=== PATIENT | male | born 1960 | race Caucasian/White ===

== ENCOUNTER 2019-01-27 09:19 | Outpatient (CLI) | payer BC ==
--- NOTE | 2019-01-27 10:54 | RAD ---
FOUR VIEWS OF THE LUMBOSACRAL SPINE: Comparison: 12-13-15 History: Left leg and back pain for a long time. FINDINGS: AP, lateral, flexion and extension views of the lumbosacral spine were performed. There is subtle gra de I anterolisthesis of L4 on L5, unchanged. The vertebral bodies demonstrate normal height without f racture. Moderate osteophytes are seen throughout the lumbar spine. Alignment is unchanged with flexi on and extension. IMPRESSION: Moderate degenerative changes of the lumbar spine with unchanged alignment with bending. POS: RICHY
--- NOTE | 2019-01-27 11:35 | MRI ---
MRI LUMBAR SPINE: Date: 01/27/19 HISTORY: Lumbar radiculopathy, M54.16, M54.5. TECHNIQUE: Multiplanar, multisequence noncontrast enhanced MRI of lumbar spine obtained. FINDINGS: T12-L1: Unremarkable. L1-2: There is mild broad based disc bulge minimally but not significantly compressing the thecal sa c. The neural foramen are patent. This mild central protrusion has developed since the previous teja rison MRI from 2003. L2-3: Disc desiccation is seen. There is a broad based central disc protrusion minimally but not sig nificantly compressing the thecal sac. There is mild left L2-3 lateral recess stenosis seen. There is moderate to severe bilateral neural foraminal narrowing seen. This appears to have developed since t he previous comparison exam, compressing right and left L2 nerve roots. L3-4: Some mild disc desiccation seen. Bilateral facet hypertrophy is seen. There is mild left L3-4 lateral recess stenosis. There is moderate left L3-4 and mild right L3-4 neural foraminal narrowing s een. L4-5: Disc desiccation is seen. There are facet degenerative changes which have increased when teja red to the 2003 exam. There is now severe bilateral facet hypertrophy, worse on the left than on the right. This results in moderate central and severe left lateral recess spinal stenosis. Mild to moder ate right-sided neural foraminal narrowing is seen. The facet appears to have an oblique-type fractur e through the left anterior facet joint extending toward the exiting left L4 nerve root. L5-S1: A moderate amount of fluid seen in the left L5-S1 facet joint. There is some facet degenerati ve change, some of this, however, appears to be chronic. IMPRESSION: Multilevel facet degenerative changes, most extensive level appears to involve the L4-5 facets, with severe neural foraminal narrowing, especially in the left neural foramen. POS: RICHY
== END 2019-01-27 09:20 | disposition home or self-care (01) ==
LOC: TBSIIMAG 09:19
PROVIDERS: ATTEND Surgery
DX: M47.26 Other spondylosis with radiculopathy, lumbar region (principal); M54.5 Low back pain; G89.29 Other chronic pain; M48.061 Spinal stenosis, lumbar region without neurogenic claudication
CPT/HCPCS: 72100; 72110; 72148

== ENCOUNTER 2019-05-26 08:26 | Day surgery (SDC) | payer BC ==
[2019-05-19 15:19] VITALS: BMI 30.4
[2019-05-26] MEDS ORDERED: Fentanyl 100 MCG/2 ML VIAL ONE ×3 (09:41→14:32)
[2019-05-26] MEDS ORDERED: Rocuronium Bromide 50 MG/5 ML VIAL ONE (09:41)
[2019-05-26] MEDS ORDERED: Lidocaine 1% PF 5 ML VIAL ONE ×2 (09:41→12:30)
[2019-05-26] MEDS ORDERED: PROPOFOL 20 ML ONE (09:41)
[2019-05-26] MEDS ORDERED: Thrombin 5000 UNITS/5 ML VIAL ONE (10:36)
[2019-05-26] MEDS ORDERED: Sodium Chloride 0.9% 10 ML ONE (10:36)
[2019-05-26] MEDS ORDERED: Bacitracin Zinc Ointment 30 gm TUBE ONE (10:36)
[2019-05-26] MEDS ORDERED: Midazolam HCl 2 mg/2 ml Vial ONE (10:46)
[2019-05-26] MEDS ORDERED: PROPOFOL 200 MG/20 ML VIAL ONE (12:30)
[2019-05-26] MEDS ORDERED: Glycopyrrolate 0.2 MG/ML 5 ML SYRINGE ONE (12:30)
[2019-05-26] MEDS ORDERED: Vecuronium 10 MG VIAL ONE (12:30)
[2019-05-26] MEDS ORDERED: ePHEDrine 50 MG/ML VIAL ONE (12:30)
[2019-05-26] MEDS ORDERED: Ketorolac Tromethamine 30 MG/ML VIAL ONE (12:30)
[2019-05-26] MEDS ORDERED: Dexamethasone 20 MG/5 ML VIAL ONE (12:30)
[2019-05-26] MEDS ORDERED: Rocuronium Bromide 10 MG/ML (10ML VIAL) ONE (12:30)
[2019-05-26] MEDS ORDERED: Acetaminophen/Codeine 30-300mg Tablet PO PRN (13:44)
[2019-05-26] MEDS ORDERED: Mag-Al 1200 mg/1200 mg/30 ML UDCUP PO PRN (13:44)
[2019-05-26] MEDS ORDERED: Acetaminophen 325 MG TAB PO PRN (13:44)
[2019-05-26] MEDS ORDERED: Morphine 2 MG/ML SYRINGE SLOW IVP PRN (13:44)
[2019-05-26] MEDS ORDERED: Milk Of Magnesia 30 ML UDCUP PO PRN (13:44)
[2019-05-26] MEDS ORDERED: Fleet Enema 133 ML BOT PR PRN (13:44)
[2019-05-26] MEDS ORDERED: Bisacodyl 10 MG SUPP PR PRN (13:44)
[2019-05-26] MEDS ORDERED: traMADol HCl 50 MG TAB PO PRN (13:44)
[2019-05-26] MEDS ORDERED: Promethazine HCl 25 MG/ML VIAL IM/IV PRN (13:44)
[2019-05-26] MEDS ORDERED: tiZANidine HCl 4 MG TAB PO PRN (13:44)
[2019-05-26] MEDS ORDERED: diphenhydrAMINE 25 MG CAP PO PRN (13:47)
--- NOTE | 2019-05-26 13:55 | OP ---
DATE OF PROCEDURE: 05/26/2019 LOCATION: OR 11. 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 PREPROCEDURE DIAGNOSES: Low back and left leg pain with left L4-L5 and left L5-S1 stenosis with lateral and far-lateral disk extrusion and facet hypertrophy with compression of traversing left L5 nerve root. PROCEDURES PERFORMED: 1. Left L4-L5 hemilaminotomy, foraminotomy, and diskectomy. 2. Left L5-S1 transfacet approach for lateral and far-lateral diskectomy and complete decompression of the exiting left L5 nerve root. 3. Use of operative microscope for microdissection. DESCRIPTION OF PROCEDURE: After informed consent was obtained from the patient, the patient was brought to the OR. Proper patient, pause, and identification were carried out. He was placed under excellent endotracheal anesthesia and positioned prone on the OR table. All appropriate points were padded. We identified the L4, L5, S1, dorsal spines, and lamina. A linear medina was made over this area. This region was sterilely cleansed, prepared, and draped. Proper patient, pause, and identification were carried out. The wound was then opened with a combination of sharp, monopolar, and blunt dissection. The left L4-L5 and left L5-S1 spinous process and christo-lamina were exposed. Localization film confirmed area of interest and performed with the operative microscope, left L4-L5 hemilaminotomy, foraminotomy, and diskectomy with excellent decompression of the exiting left L4 and traversing proximal portion of the left L5 nerve root. Then, turned our attention to left L5-S1 segment. A transfacet approach and diskectomy were performed for lateral and far-lateral decompression with diskectomy of the exiting left L5 nerve root. We had excellent decompression of the left L5 nerve. Copious irrigation occurred throughout as did maximizing hemostasis. There was no spinal fluid leak. The wound was closed in anatomic layers following sprinkling of vancomycin powder. The patient was emerged from anesthesia. Job ID: [id number]
[2019-05-26] MEDS: Sodium Chloride 0.9% 1,000 ML IV SCH (16:35)
[2019-05-26] MEDS: HYDROcodone/Acetaminophen 7.5/325 mg Tablet PO PRN (17:52)
[2019-05-26] MEDS: CEFAZOLIN 2 GM in Premix Bag 1 BAG IVPB SCH (17:54)
[2019-05-26] MEDS: Magnesium Oxide 400 MG TAB PO SCH (19:54)
[2019-05-26] MEDS ORDERED: SAW PALMETTO FRUIT 450 MG PO SCH (21:00)
[2019-05-27] MEDS: HYDROcodone/Acetaminophen 7.5/325 mg Tablet PO PRN ×2 (01:20→09:04)
[2019-05-27] MEDS: CEFAZOLIN 2 GM in Premix Bag 1 BAG IVPB SCH (01:20)
[2019-05-27] MEDS: Sodium Chloride 0.9% 1,000 ML IV SCH (02:36)
[2019-05-27] MEDS ORDERED: Losartan 25 MG TAB PO SCH (09:00)
[2019-05-27] MEDS: Magnesium Oxide 400 MG TAB PO SCH (09:00)
[2019-05-27] MEDS ORDERED: Amlodipine 5 MG TAB PO SCH (09:00)
--- NOTE | 2019-05-27 09:52 | PRG ---
DATE OF SERVICE: 05/27/2019 SUBJECTIVE: Mr. Paul has had resolution in his left lower extremity pain following left L5 decompression. He met criteria for discharge and will be discharged home. Job ID: [id number]
[2019-05-27 11:05] VITALS: BP 147/81; TEMP 98.1
== END 2019-05-27 12:10 | disposition home or self-care (01) ==
LOC: SDC 08:26 → SURG A 15:54 → SDC 05-27 12:10
PROVIDERS: ATTEND Surgery
PROC: 0SB20ZZ Excision of Lumbar Vertebral Disc, Open Approach (ICD-10-PCS; principal; 2019-05-27)
DX: M51.16 Intervertebral disc disorders with radiculopathy, lumbar region (principal); M51.27 Other intervertebral disc displacement, lumbosacral region; M48.061 Spinal stenosis, lumbar region without neurogenic claudication; M48.07 Spinal stenosis, lumbosacral region; Z91.018 Allergy to other foods; Z79.899 Other long term (current) drug therapy
CPT/HCPCS: 76000; J0690; J1100; J1885; J2001; J2250; J2704; J3010; J3370; J3490

== ENCOUNTER 2019-08-25 08:06 | Outpatient (CLI) | payer BC ==
[~2019-08-25 08:06] MED LIST: EPINEPHrine 1 MG/ML AMP ONE; Gadobenate Dimeglumine 529 MG/1 ML (20ML VIAL) ONE; Iopamidol 300 61% 100 ML VIAL FS ONE; Lidocaine 1% PF 10 ML AMP ONE
--- NOTE | 2019-08-25 10:25 | RAD ---
XR Shoulder Rt Arthrogram History: Shoulder pain Comparison: Arthrogram 2014 Findings: Patient was brought to the fluoroscopy suite. All questions were answered. Informed consent was obtained. Timeout performed. Patient's right shoulder is prepped and draped in normal sterile fashion. 3 mL lidocaine was instille d into the superficial and deep soft tissues. Using fluoroscopic guidance the right shoulder joint was accessed with a 22-gauge spinal needle for w hich 11 cc of contrast was instilled. The joint capsule is very thick and partially calcified. [facility] radiograph demonstrates advanced degenerative disease acromioclavicular joint. No fracture or m alalignment. Ribs are intact. Impression: Technically successful shoulder arthrogram for MRI.
--- NOTE | 2019-08-25 10:55 | MRI ---
MRI Upper Ext Jt Rt W Con History: Shoulder pain. M 75.21 bicipital tendinitis Comparison: Shoulder arthrogram 2014 Findings: Biceps tendon: Interstitial split tear at the proximal intertubercular groove extending int o the intra-articular tendon. No subluxation. Labrum: Tear throughout the superior labrum extending anterior-posterior to the biceps labral expansi on. Rotator cuff: Low-grade undersurface fraying of the supraspinatus and infraspinatus tendon. There is high-grade hidden tear throughout the supraspinatus and infraspinatus tendon at the footprint involving greater than 50% footprint thickness. There is no significant intra-articular contrast exte nding into the supraspinatus portion of the tear with mild imbibement of the infraspinatus footprint tear. There is also mild bursal surface fraying supraspinous tendon. Bones: Type I acromion with mild lateral downsloping. Advanced degenerative disease acromioclavicular joints. Large erosions of the infraspinatus footprint. Soft tissues: Large subacromial/subdeltoid bursa effusion. Muscles: Muscle bulk is normal. No atrophy. Cartilage: Intact. Impression: 1. Interstitial split tear biceps tendon proximal intertubercular groove extending into the intra-art icular tendon without retraction. 2. Superior labral tear extending anterior-posterior to the biceps labral expansion. 3. High-grade hidden interstitial tear at the footprint supraspinatus and infraspinatus tendons witho ut intra-articular contrast extending into the supraspinatus tear. There is some mild imbibement of contrast at the infraspinatus footprint. 4. Low-grade bursal and articular surface fraying supraspinous and infraspinatus tendons. 5. Normal muscle bulk. 6. Type I acromion with mild lateral downsloping and large subacromial/subdeltoid bursa effusion.
== END 2019-08-25 08:07 | disposition home or self-care (01) ==
LOC: RAD 08:06
PROVIDERS: ATTEND Pediatrics Sports Medicine
DX: M75.21 Bicipital tendinitis, right shoulder (principal); M25.511 Pain in right shoulder; S43.401A Unspecified sprain of right shoulder joint, initial encounter; M75.101 Unspecified rotator cuff tear or rupture of right shoulder, not specified as traumatic
CPT/HCPCS: 23350; A9577; J0171; J2001; Q9967

== ENCOUNTER 2019-10-19 06:35 | Outpatient (CLI) | payer BC ==
[2019-10-19 09:22] LABS: #Eosinphils 0.3 thou/uL (0.0-0.7); #Lymphocytes 1.4 thou/uL (1.20-3.40); #Monocytes 0.5 thou/uL (0.11-0.59); #Neutrophils 2.5 thou/uL (1.40-6.50); %Eosinophils 6.6 % (0.0-10.0); %Lymphocytes 28.8 % (21.0-51.0); %Monocytes 11.1 % (0.0-10.0); %Neutrophils 52.6 % (42.0-75.0); Hemoglobin 13.2 g/dL (14.0-18.0); Mean Corpuscular HGB CONC 33.3 g/dL (32.0-36.0); Mean Corpuscular Hemoglobin 29.5 pg (27.0-31.0); Mean Corpuscular Volume 88.9 fL (78.0-98.0); Mean Platelet Volume 9.3 fL (7.4-10.4); Platelet Count 235 thou/uL (130-400); RBC Distribution Width 11.7 % (11.5-14.5); Red Blood Cell (RBC) Count 4.45 mill/uL (4.70-6.10); White Blood Cell (WBC) Count 4.8 thou/uL (4.8-10.8)
[2019-10-19 09:52] LABS: Anion Gap 12 mmol/L (10-20); BUN (Urea Nitrogen) 21 mg/dL (8.4-25.7); Calc. Creatinine Clearance 0 mL/min (70-130); Calcium 8.9 mg/dL (7.8-10.44); Carbon Dioxide 22 mmol/L (23-31); Chloride 107 mmol/L (98-107); Estimated GFR-MDRD Greater than 90; Glucose 161 mg/dL (80-115); Potassium 4.2 mmol/L (3.5-5.1); Sodium 137 mmol/L (136-145)
== END 2019-10-19 06:36 | disposition home or self-care (01) ==
LOC: LABBT 06:35
PROVIDERS: ATTEND Orthopaedic Surgery
DX: Z01.818 Encounter for other preprocedural examination (principal); M75.101 Unspecified rotator cuff tear or rupture of right shoulder, not specified as traumatic
CPT/HCPCS: 80048; 85025; 93005; 93010

== ENCOUNTER 2019-10-21 06:05 | Day surgery (SDC) | payer BC ==
[2019-10-19 09:22] VITALS: BMI 30.4
[2019-10-21] MEDS ORDERED: Midazolam HCl 2 mg/2 ml Vial ONE (07:29)
[2019-10-21] MEDS ORDERED: Fentanyl 100 MCG/2 ML VIAL ONE (07:30)
[2019-10-21] MEDS ORDERED: traMADol HCl 50 MG TAB PO PRN ×2 (08:08)
[2019-10-21] MEDS ORDERED: Promethazine HCl 25 MG/ML VIAL IM PRN (08:08)
[2019-10-21] MEDS ORDERED: HYDROcodone/Acetaminophen 10/325 mg Tablet PO PRN ×2 (08:08)
[2019-10-21] MEDS ORDERED: Zolpidem Tartrate 5 MG TAB PO PRN (08:08)
[2019-10-21] MEDS ORDERED: Ketorolac Tromethamine 30 MG/ML VIAL IVP PRN (08:08)
[2019-10-21] MEDS ORDERED: Ropivacaine 0.2% 550 ML 550 ML NERVE BLCK SCH (08:08)
[2019-10-21] MEDS ORDERED: Ondansetron PF 4 MG/2 ML Vial IVP PRN (08:08)
[2019-10-21] MEDS ORDERED: Lidocaine 1% w/Epinephrine 1:100K 30 ML VIAL ONE (09:26)
[2019-10-21] MEDS ORDERED: Meperidine HCl/PF 25 MG/ML VIAL ONE (10:35)
[2019-10-21] MEDS ORDERED: Ropivacaine 0.5% HCl/PF (150 MG/30 ML VIAL) ONE (10:44)
[2019-10-21] MEDS ORDERED: Ropivacaine 0.2% HCl/PF (40 MG/20 ML VIAL) ONE (10:44)
[2019-10-21] MEDS ORDERED: PROPOFOL 200 MG/20 ML VIAL ONE (10:44)
[2019-10-21] MEDS ORDERED: Lidocaine 1% PF 5 ML VIAL ONE (10:44)
[2019-10-21] MEDS ORDERED: Glycopyrrolate 0.2 MG/ML 5 ML SYRINGE ONE (10:44)
[2019-10-21] MEDS ORDERED: Rocuronium Bromide 10 MG/ML (10ML VIAL) ONE (10:44)
--- NOTE | 2019-10-21 14:54 | OP ---
DATE OF PROCEDURE: 10/21/2019 PREOPERATIVE DIAGNOSES: 1. Right shoulder biceps tendon tear and rotator cuff tear. 2. Right shoulder impingement. POSTOPERATIVE DIAGNOSES: 1. Right shoulder biceps tendon tear and rotator cuff tear. 2. Right shoulder impingement. PROCEDURES PERFORMED: Right shoulder arthroscopy with debridement and shaving of intra-articular synovitis, followed by debridement of degenerative labral tear followed by arthroscopic biceps tenotomy followed by arthroscopic subacromial decompression followed by arthroscopic rotator cuff repair. [employer]: None. ESTIMATED BLOOD LOSS: Minimal. COMPLICATIONS: None. ANESTHESIA: He had a general anesthetic as well as a preoperative block. IMPLANTS: We used one 4.75 [employer]posite SwiveLock for cuff repair. DISPOSITION: He did go to recovery room in stable condition. INDICATIONS: A 59-year-old male injured himself, and since that time, he has had significant pain and problems with the right shoulder. At this time, he opted for surgery. DESCRIPTION OF PROCEDURE: After all appropriate consent forms were explained and signed, he was taken back to the operative room and at this time was given general anesthetic. Once the level of anesthesia was appropriate, he was rolled into the left lateral decubitus position with all bony prominences well padded. Axillary roll was placed underneath the left axilla and a liu bag was inflated to hold in this position. The arm was then taken through full range of motion and suspended with 10 pounds in standard arthroscopic fashion. The shoulder and upper extremity were then prepped and draped in standard surgical fashion. Bony anatomical landmarks were drawn out. The subacromial space was infiltrated with Marcaine with epinephrine. Posterior portal was then established. Scope was placed into the shoulder joint. Anterior working portal was made using a needle localization technique. Diagnostic arthroscopy commenced in the glenohumeral joint. The biceps tendon was found to have significant tearing and the more we pulled it into the joint, the worst of tearing went as far as we could see down the arm. Therefore, it was decided this was not appropriate to perform a tenodesis with a rather tenotomy. Therefore, the tear was debrided. We then cut the biceps off its labral insertion using the SERFAS energy. Subscapularis was found to have a slight tear of the most superior surface. The articular surface of the glenoid and the humeral head were overall in good condition. There was a significant amount of synovitis, which took a fair amount of time to coagulate followed by debridement. We then noted a significant tear of the rotator cuff and this was debrided from the undersurface. No loose bodies were noted in the axillary pouch and the posterior and inferior labrum were found to be in good condition. At this time, we removed the scope and repositioned into the subacromial space. Lateral working portal was made. Bursa was removed off the underlying cuff. A small bony decompression was performed using the SERFAS energy and the shaver. We then noted our torn cuff; however, we were able to pass our blunt probe down through there. We then took the shaver and debrided our edges to get back to good tissue. We also removed all the soft tissue off the tuberosity, and at this time, ready for repair. PassPort Button was placed laterally. We then decided to do a FastFix on this, so we used the ScSoundFocusion device to place a FiberTape in horizontal inverted mattress fashion through our small tear. This was then placed through a 4.75 SwiveLock laterally down the arm to complete our repair. This closed this hole up very nicely and the internal suture was not needed and was thus removed. At this time, the scope was removed. The shoulder was drained. We closed these portals with simple nylon stitches followed by placing a bulky sterile dressing on the shoulder. The patient was then awakened. He was taken to recovery room in stable condition. All counts were correct at the end of the case. He did receive preoperative IV antibiotics. Job ID: [id number]
== END 2019-10-21 13:35 | disposition home or self-care (01) ==
LOC: SDC 06:05
PROVIDERS: ATTEND Orthopaedic Surgery
DX: M75.101 Unspecified rotator cuff tear or rupture of right shoulder, not specified as traumatic (principal); S46.211A Strain of muscle, fascia and tendon of other parts of biceps, right arm, initial encounter; M25.811 Other specified joint disorders, right shoulder; G89.18 Other acute postprocedural pain; I10 Essential (primary) hypertension; E11.9 Type 2 diabetes mellitus without complications; G80.9 Cerebral palsy, unspecified; Z79.899 Other long term (current) drug therapy; Z88.8 Allergy status to other drugs, medicaments and biological substances
CPT/HCPCS: A4306; C1713; J0690; J2001; J2175; J2250; J2704; J2795; J3010